=== PATIENT | female | born 1965 | race Caucasian/White ===

== ENCOUNTER 2023-06-26 15:20 | Emergency (ER) | payer MEDICAID ==
[~2023-06-26] VITALS: Ht 165.1 cm; Wt 140.6 kg
[~2023-06-26 15:20] MED LIST: COL250 PO; HYDR-5080 PO
[2023-06-26 15:28] VITALS: BP 148/68; PULSE 72; RESP 16; TEMP 97.8; O2SAT 100
[2023-06-26] MEDS ORDERED: KETOROLAC 60 MG/2 ML VIAL IM ONE (16:05)
[2023-06-26] MEDS ORDERED: IBUP-2213 PO (17:13)
== END 2023-06-26 17:33 | disposition home or self-care (01) ==
LOC: MED 15:20
DX: M25.561 Pain in right knee (principal); I10 Essential (primary) hypertension; Z79.899 Other long term (current) drug therapy
CPT/HCPCS: 93971; 96372; 99285; J1885